=== PATIENT | female | born 1985 | race Caucasian/White ===

== ENCOUNTER 2017-08-03 15:46 | Emergency (ER) | payer BC, OTHER ==
[~2017-08-03] VITALS: Ht 162.6 cm; Wt 72.6 kg
[2017-08-03 16:25] LABS: BILIRUBIN,URINE NEGATIVE (NEGATIVE); CLARITY,URINE CLEAR; COLOR,URINE YELLOW; GLUCOSE, URINE (UA) NEGATIVE (NEGATIVE); KETONES,URINE 2+ (NEGATIVE); LEUKOCYTE ESTERASE ,URINE NEGATIVE (NEGATIVE); NITRITE,URINE NEGATIVE (NEGATIVE); PH,URINE 6 (5-9); PROTEIN,URINE NEGATIVE (NEGATIVE); UROBILINOGEN,URINE NORMAL (NORMAL)
[2017-08-03 16:34] LABS: SQUAMOUS EPITHELIAL CELL,UR 0-2 /HPF
[2017-08-03] MEDS ORDERED: ONDANSETRON 4 MG/2 ML (SDV) Z0FRAN IVP ONE (16:45)
[2017-08-03] MEDS ORDERED: IOHEXOL 350 MG/ML 100 ML (OMNIPAQUE 350) VIAL IV ONE (16:45)
[2017-08-03] MEDS ORDERED: fentaNYL INJECTION 100 MCG/2 ML AMP IVP ONE ×3 (16:45→19:15)
[2017-08-03] MEDS ORDERED: NS 100 ML (IVPB) BAG IV ONE (16:45)
[2017-08-03 16:55] LABS: BASOPHILS % (AUTO) 0 % (0-10); EOSINOPHILS % (AUTO) 0 % (0-10); HEMATOCRIT 41 % (35-52); HEMOGLOBIN 14.3 G/DL (11.5-16.0); LYMPHOCYTES # (AUTO) 1.7 X 10^3 (1.0-4.0); LYMPHOCYTES % (AUTO) 19 % (12-44); MEAN CORPUSCULAR HEMOGLOBIN 33 PG (25-34); MEAN CORPUSCULAR HGB CONC 35 G/DL (32-36); MEAN CORPUSCULAR VOLUME 94 FL (80-99); MEAN PLATELET VOLUME 11.5 FL (7.4-10.4); MONOCYTES # (AUTO) 0.5 X 10^3 (0.0-1.0); MONOCYTES % (AUTO) 5 % (0-12); NEUTROPHILS # (AUTO) 6.5 X 10^3 (1.8-7.8); NEUTROPHILS % (AUTO) 75 % (42-75); PLATELET COUNT 238 10^3/uL (130-400); RED BLOOD COUNT 4.35 10^6/uL (4.35-5.85); WHITE BLOOD COUNT 8.6 10^3/uL (4.3-11.0)
[2017-08-03 17:13] LABS: ALANINE AMINOTRANSFERASE 18 U/L (0-55); ALBUMIN 4.1 GM/DL (3.2-4.5); ALKALINE PHOSPHATASE 72 U/L (40-136); BILIRUBIN,TOTAL 0.6 MG/DL (0.1-1.0); BUN/CREATININE RATIO 14; CALCIUM 8.8 MG/DL (8.5-10.1); CARBON DIOXIDE 22 MMOL/L (21-32); CHLORIDE 104 MMOL/L (98-107); CREATININE SERUM 0.76 MG/DL (0.60-1.30); GFR ESTIMATED > 60; GLUCOSE 117 MG/DL (70-105); SODIUM 137 MMOL/L (135-145); TOTAL PROTEIN 7.3 GM/DL (6.4-8.2)
--- NOTE | 2017-08-03 17:25 | Diagnostic Imaging Report ---
PROCEDURE: CT abdomen and pelvis with contrast, rule out appendicitis. TECHNIQUE: Multiple contiguous axial images were obtained through the abdomen and pelvis after the administration of intravenous contrast. INDICATION: Right lower quadrant pain and nausea. COMPARISON: No prior studies are available for comparison. FINDINGS: The lung bases are clear. Liver contains several circumscribed low densities, too small to characterize but likely cysts. The gallbladder is unremarkable. The pancreas and spleen are unremarkable. No adrenal mass is identified. The kidneys are unremarkable. No hydronephrosis is seen. The aorta is normal in caliber. The small and large bowel loops appear to be normal in caliber. The appendix is not well seen on this exam. There is a thickwalled cystic mass in the right adnexa measuring 4.6 cm in diameter. This most likely is arising from the right ovary. There are several additional smaller cystic structures present. Small amount of free fluid is present. The bladder is unremarkable. IMPRESSION: Thick-walled cystic mass in the right adnexa, likely ovarian. Further characterization with pelvic sonography would be useful. No other significant abnormality is identified. Dictated by: Dictated on workstation # [id number]
--- NOTE | 2017-08-03 17:59 | ED Abdominal Pain ---
General Chief Complaint: Abdominal/GI Problems Stated Complaint: ABD PAIN Nursing Triage Note: c/o right sided abd pain. Onset this afternoon. Sepsis Screen: No Definite Risk Source of Information: Patient Exam Limitations: No Limitations (TONY MARTÍNEZ MD) History of Present Illness Date Seen by Provider: Aug 03, 2017 Time Seen by Provider: 16:05 Initial Comments This 32-year-old young lady presents to emergency room with 3-4 hours of right lower quadrant pain that is sharp in nature. She has associated nausea. Pain is worse with walking and movement. She denies any diarrhea or constipation. Her last bowel movement was yesterday and was normal. She is post hysterectomy and unilateral oophorectomy. She cannot remember which ovary was removed. She is not taken any medications for the pain. She experiences some internal pelvic pain with urination during her last 2 voids. She denies any vaginal symptoms. Pain started while she was driving back home from [place]. Patient has peritoneal signs on exam including positive Rovsing, heel tap, rebound tenderness and psoas signs. (TONY MARTÍNEZ MD) Allergies and Home Medications Allergies Coded Allergies: No Known Drug Allergies (Unverified , 08/03/17) Home Medications Hydrocodone/Acetaminophen 1 Each Tablet, 1 EACH PO Q4H PRN for PAIN-MODERATE TO SEVERE Prescribed by: JASSON MONTERO on 08/03/171925 Patient Home Medication List Home Medication List Reviewed: Yes (TONY MARTÍNEZ MD) Review of Systems Constitutional: no symptoms reported EENTM: No Symptoms Reported Respiratory: No Symptoms Reported Cardiovascular: No Symptoms Reported Gastrointestinal: See HPI Genitourinary: See HPI Musculoskeletal: no symptoms reported Skin: no symptoms reported Psychiatric/Neurological: No Symptoms Reported Endocrine: No Symptoms Reported Hematologic/Lymphatic: No Symptoms Reported (TONY MARTÍNEZ MD) Past Vcrznch-Obmlvy-Zojfwh Hx Patient Social History Alcohol Use: Denies Use Recreational Drug Use: No Recent Foreign Travel: No Contact w/Someone Who Travel: No Recent Infectious Disease Expo: No (TONY MARTÍNEZ MD) Surgeries History of Surgeries: Yes Surgeries: Section, Ear Surgery (TM tubes), Hysterectomy (left oophorectomy) (TONY MARTÍNEZ MD) Respiratory History of Respiratory Disorde: No (TONY MARTÍNEZ MD) Cardiovascular History of Cardiac Disorders: No (TONY MARTÍNEZ MD) Neurological History of Neurological Disord: No (TONY MARTÍNEZ MD) 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 (TONY MARTÍNEZ MD) Genitourinary History of Genitourinary Disor: No (TONY MARTÍNEZ MD) Gastrointestinal History of Gastrointestinal Di: No (TONY MARTÍNEZ MD) Musculoskeletal History of Musculoskeletal Dis: No (TONY MARTÍNEZ MD) Endocrine History of Endocrine Disorders: No (TONY MARTÍNEZ MD) HEENT History of HEENT Disorders: No (TONY MARTÍNEZ MD) Cancer History of Cancer: No (TONY MARTÍNEZ MD) Psychosocial History of Psychiatric Problem: No (TONY MARTÍNEZ MD) Integumentary History of Skin or Integumenta: No (TONY MARTÍNEZ MD) Blood Transfusions History of Blood Disorders: No (TONY MARTÍNEZ MD) Physical Exam Vital Signs VS - Last 72 Hours, by Label 08/03/17 08/03/17 08/03/17 16:55 17:03 18:19 Temp 97.0 97.5 97.5 Pulse 70 Resp 16 B/P (MAP) 104/59 (74) Pulse Ox 98 O2 Delivery Room Air (JASSON MNOTERO APRN) Vital Signs Capillary Refill : Less Than 3 Seconds (TONY MARTÍNEZ MD) General Appearance: WD/WN, no apparent distress HEENT: PERRL/EOMI, normal ENT inspection Neck: normal inspection Respiratory: lungs clear, normal breath sounds, no respiratory distress, no accessory muscle use Cardiovascular: regular rate, rhythm, no edema, no murmur Gastrointestinal: soft, abnormal bowel sounds (decreased), rebound (right lower quadrant), tenderness (right lower quadrant), other (positive Rovsing, psoas sign bilaterally, and heel tap on the right) Extremities: normal inspection, no pedal edema 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, no motor/sensory deficits, alert, normal mood/affect, oriented x 3 Skin: normal color, warm/dry (TONY MARTÍNEZ MD) Progress/Results/Core Measures Results/Orders Lab Results Laboratory Tests Test 08/03/17 16:05 08/03/17 16:47 Range/Units Urine Color YELLOW Urine Clarity CLEAR Urine pH 6 5-9 Urine Specific [place] 1.015 L 1.016-1.022 Urine Protein NEGATIVE NEGATIVE Urine Glucose (UA) NEGATIVE NEGATIVE Urine Ketones 2+ H NEGATIVE Urine Nitrite NEGATIVE NEGATIVE Urine Bilirubin NEGATIVE NEGATIVE Urine Urobilinogen NORMAL NORMAL MG/DL Urine Leukocyte Esterase NEGATIVE NEGATIVE Urine RBC (Auto) NEGATIVE NEGATIVE Urine RBC NONE /HPF Urine WBC NONE /HPF Urine Squamous Epithelial Cells 0-2 /HPF Urine Crystals NONE /LPF Urine Bacteria NONE /HPF Urine Casts NONE /LPF Urine Mucus NEGATIVE /LPF Urine Culture Indicated NO White Blood Count 8.6 4.3-11.0 10^3/uL Red Blood Count 4.35 4.35-5.85 10^6/uL Hemoglobin 14.3 11.5-16.0 G/DL Hematocrit 41 35-52 % Mean Corpuscular Volume 94 80-99 FL Mean Corpuscular Hemoglobin 33 25-34 PG Mean Corpuscular Hemoglobin Concent 35 32-36 G/DL Red Cell Distribution Width 13.0 10.0-14.5 % Platelet Count 238 130-400 10^3/uL Mean Platelet Volume 11.5 H 7.4-10.4 FL Neutrophils (%) (Auto) 75 42-75 % Lymphocytes (%) (Auto) 19 12-44 % Monocytes (%) (Auto) 5 0-12 % Eosinophils (%) (Auto) 0 0-10 % Basophils (%) (Auto) 0 0-10 % Neutrophils # (Auto) 6.5 1.8-7.8 X 10^3 Lymphocytes # (Auto) 1.7 1.0-4.0 X 10^3 Monocytes # (Auto) 0.5 0.0-1.0 X 10^3 Eosinophils # (Auto) 0.0 0.0-0.3 10^3/uL Basophils # (Auto) 0.0 0.0-0.1 10^3/uL Sodium Level 137 135-145 MMOL/L Potassium Level 4.0 3.6-5.0 MMOL/L Chloride Level 104 98-107 MMOL/L Carbon Dioxide Level 22 21-32 MMOL/L Anion Gap 11 5-14 MMOL/L Blood Urea Nitrogen 11 7-18 MG/DL Creatinine 0.76 0.60-1.30 MG/DL Estimat Glomerular Filtration Rate > 60 BUN/Creatinine Ratio 14 Glucose Level 117 H 70-105 MG/DL Calcium Level 8.8 8.5-10.1 MG/DL Total Bilirubin 0.6 0.1-1.0 MG/DL Aspartate Amino Transf (AST/SGOT) 20 5-34 U/L Alanine Aminotransferase (ALT/SGPT) 18 0-55 U/L Alkaline Phosphatase 72 40-136 U/L Total Protein 7.3 6.4-8.2 GM/DL Albumin 4.1 3.2-4.5 GM/DL (JASSON MONTERO APRN) My Orders Orders - JASSON MONTERO APRN Fentanyl Injection (Sublimaze Injection (08/03/17 18:15) Fentanyl Injection (Sublimaze Injection (08/03/17 19:15) Rx-Hydrocodone/Apap 5-325 Mg (Rx-Vicodin (08/03/17 20:00) (JASSON MONTERO APRN) Medications Given in ED Current Medications Medications Dose Ordered Sig/Edy Route Start Time Stop Time Status Last Admin Dose Admin Fentanyl Citrate 50 mcg ONCE ONCE IVP 08/03/17 16:45 08/03/17 16:46 DC 08/03/17 16:55 50 MCG Fentanyl Citrate 50 mcg ONCE ONCE IVP 08/03/17 18:15 08/03/17 18:16 DC 08/03/17 18:19 50 MCG Fentanyl Citrate 50 mcg ONCE ONCE IVP 08/03/17 19:15 08/03/17 19:16 DC 08/03/17 20:09 50 MCG Iohexol 100 ml ONCE ONCE IV 08/03/17 16:45 08/03/17 16:59 DC 08/03/17 17:04 100 ML Ondansetron HCl 8 mg ONCE ONCE IVP 08/03/17 16:45 08/03/17 16:46 DC 08/03/17 16:55 8 MG Sodium Chloride 100 ml ONCE ONCE IV 08/03/17 16:45 08/03/17 16:59 DC 08/03/17 17:04 100 ML (JASSON MONTERO APRN) Vital Signs/I&O Vital Sign - Last 12Hours 3/6/18 3/6/18 3/6/18 16:55 17:03 18:19 Temp 97.0 97.5 97.5 Pulse 70 Resp 16 B/P (MAP) 104/59 (74) Pulse Ox 98 O2 Delivery Room Air (JASSON MONTERO APRN) Blood Pressure Mean: 74 Progress Note : Time: 17:59 Progress Note Patient was seen and examined. Exam was concerning for appendicitis. Labs and CT were performed. Patient was treated with fentanyl and Zofran to control her symptoms. CT demonstrated no evidence of appendicitis but there was a large cystic mass in the right adnexa. I discussed these findings with Dr. Valenzuela who recommended emergent ultrasound follow-up. Ultrasound has been ordered and is pending. Care of this patient is being transferred to Jasson Montero APRN. (TONY MARTÍNEZ MD) Diagnostic Imaging Diagonstic Imaging: CT Plain Films/CT/US/NM/MRI: abdomen, pelvis Comments CT abdomen and pelvis viewed by me and report reviewed. See report below: NAME: AUDREY BETTS [facility] REC#: [id number] PT STATUS: REG ER : 1985 PHYSICIAN: TONY MARTÍNEZ MD ADMIT DATE: 08/03/17/ER Draft Date of Exam:08/03/17 CT ABD/PELV W (APPENDICITIS) PROCEDURE: CT abdomen and pelvis with contrast, rule out appendicitis. TECHNIQUE: Multiple contiguous axial images were obtained through the abdomen and pelvis after the administration of intravenous contrast. INDICATION: Right lower quadrant pain and nausea. COMPARISON: No prior studies are available for comparison. FINDINGS: The lung bases are clear. Liver contains several circumscribed low densities, too small to characterize but likely cysts. The gallbladder is unremarkable. The pancreas and spleen are unremarkable. No adrenal mass is identified. The kidneys are unremarkable. No hydronephrosis is seen. The aorta is normal in caliber. The small and large bowel loops appear to be normal in caliber. The appendix is not well seen on this exam. There is a thickwalled cystic mass in the right adnexa measuring 4.6 cm in diameter. This most likely is arising from the right ovary. There are several additional smaller cystic structures present. Small amount of free fluid is present. The bladder is unremarkable. IMPRESSION: Thick-walled cystic mass in the right adnexa, likely ovarian. Further characterization with pelvic sonography would be useful. No other significant abnormality is identified. Dictated on workstation # [id number] Dict: 08/03/17 1717 Trans: 08/03/17 1724 [id number] Interpreted by: ELVIN VALENZUELA MD (TONY MARTÍNEZ MD) Diagonstic Imaging: Ultrasound Comments NAME: AUDREY BETTS [facility] REC#: [id number] PT STATUS: REG ER : 1985 PHYSICIAN: TONY MARTÍNEZ MD ADMIT DATE: 08/03/17/ER Draft Date of Exam:08/03/17 US NON OB TRANSVAGINAL [id number] CLINICAL INDICATION: Patient with hysterectomy and left oophorectomy in October of 2014. EXAM: Transabdominal and transvaginal pelvic ultrasound. COMPARISON: CT scan of the abdomen and pelvis with contrast dated 08/03/2017. FINDINGS: There is a 4.9 cm x 4.0 cm x 4.0 cm heterogeneous mass in the right ovary region which demonstrates no significant central Doppler flow and correlates to the abnormality seen on comparison CT scan. This most likely represents a hemorrhagic cyst. There is also a smaller cyst seen within the right ovary region. The right ovary is otherwise unremarkable with spectral Doppler waveform and no evidence of torsion. There is a small amount of free fluid in the pelvis. Postop changes consistent with hysterectomy and left oophorectomy with these structures absent on this exam. IMPRESSION: 1: There is a 4.9 cm hemorrhagic cyst within the right ovary. Followup ultrasound in 6 weeks is suggested to evaluate for resolution. 2: There is minimal free fluid in the pelvis. 3: Surgical history of hysterectomy and left oophorectomy. Dictated on workstation # [id number] Dict: 08/03/17 191 Trans: 08/03/171926 [id number] Interpreted by: CRESENCIO PHAM MD Electronically signed by: (JASSON MONTERO APRN) Departure Communication (Admissions) Progress Notes 1942 I discussed the ovarian hemorrhagic cyst with the patient. She is established with a Dr. Kathy Elias from gynecology in [facility]. She will call tomorrow for a follow-up appointment. (JASSON MONTERO APRN) Impression Impression: Primary Impression: Hemorrhagic cyst of right ovary Disposition: 01 HOME, SELF-CARE Condition: Improved Departure-Patient Inst. Decision time for Depature: 19:24 (JASSON MONTERO APRN) Referrals: NO,LOCAL PHYSICIAN (PCP) Primary Care Physician MIMI BEST DENNIS G MD SHAW, ANGELA C DO Patient Instructions: Ovarian Cyst (DC) Add. Discharge Instructions: 1. Return to ER for any worsening abdominal pain, lightheadedness, or other conerns 2. Pain medication as needed for pain control 3. Call WELFARE SUPERVISOR tomorrow to make an appointment for follow up within the next few days. All discharge instructions reviewed with patient and/or family. Voiced understanding. Scripts Hydrocodone/Acetaminophen (Paige 5-325 Tablet) 1 Each Tablet 1 EACH PO Q4H Y for PAIN-MODERATE TO SEVERE, #20 TAB Prov: JASSON MONTERO APRN 08/03/17 Work/School Note: Work Release Form Date Seen in the Emergency Department: Aug 03, 2017 Return to Work: Aug 05, 2017 TONY MARTÍNEZ MD Aug 03, 2017 17:58 JASSON MONTERO APRN Aug 03, 2017 19:26
[2017-08-03] MEDS ORDERED: HYDR-757 PO (19:26)
--- NOTE | 2017-08-03 19:27 | Diagnostic Imaging Report ---
CLINICAL INDICATION: Patient with hysterectomy and left oophorectomy in October of 2014. EXAM: Transabdominal and transvaginal pelvic ultrasound. COMPARISON: CT scan of the abdomen and pelvis with contrast dated 08/03/2017. FINDINGS: There is a 4.9 cm x 4.0 cm x 4.0 cm heterogeneous mass in the right ovary region which demonstrates no significant central Doppler flow and correlates to the abnormality seen on comparison CT scan. This most likely represents a hemorrhagic cyst. There is also a smaller cyst seen within the right ovary region. The right ovary is otherwise unremarkable with spectral Doppler waveform and no evidence of torsion. There is a small amount of free fluid in the pelvis. Postop changes consistent with hysterectomy and left oophorectomy with these structures absent on this exam. IMPRESSION: 1: There is a 4.9 cm hemorrhagic cyst within the right ovary. Followup ultrasound in 6 weeks is suggested to evaluate for resolution. 2: There is minimal free fluid in the pelvis. 3: Surgical history of hysterectomy and left oophorectomy. Dictated by: Dictated on workstation # [id number]
[2017-08-03] MEDS ORDERED: RX-HYDROCODONE/APAP 5/325 MG #4 TAB PK PO PRN (20:00)
[2017-08-03 20:19] VITALS: BP 126/73
== END 2017-08-03 20:19 | disposition home or self-care (01) ==
LOC: EDUNIT# 15:46 → ER 15:50
DX: N83.201 Unspecified ovarian cyst, right side (principal); Z87.59 Personal history of other complications of pregnancy, childbirth and the puerperium; Z90.711 Acquired absence of uterus with remaining cervical stump
CPT/HCPCS: 36415; 74177; 76830; 80053; 81000; 85025; 96374; 96375; 96376